=== PATIENT | male | born 1990 ===

== ENCOUNTER 2019-03-04 22:27 | Emergency (ER) | payer OTHER ==
[2019-03-04 22:42] VITALS: RESP 18; O2SAT 99
[2019-03-04 23:44] LABS: BASO # 0.1 K/uL (0.0-0.2); EOS # 0.2 K/uL (0.0-0.7); EOS % 1.6 % (0.0-4.0); HEMOGLOBIN 11.6 g/dL (12.0-18.0); LYMPH # 2.7 K/uL (1.0-4.3); LYMPH % 28.2 % (20.0-40.0); MEAN CELL VOLUME 74.7 fl (80.0-94.0); MEAN CORPUSCULAR HEMOGLOBIN 24.4 pg (27.0-31.0); MEAN CORPUSCULAR HGB CONC 32.7 g/dL (33.0-37.0); MEAN PLATELET VOLUME 7.9 fl (7.2-11.7); MONO # 0.6 K/uL (0.0-0.8); MONO % 6.6 % (0.0-10.0); NEUT % 62.6 % (50.0-75.0); NRBC % 0.1 % (0.0-0.0); RBC 4.77 Mil/uL (4.40-5.90); WHITE BLOOD COUNT 9.5 K/uL (4.8-10.8)
[2019-03-04 23:54] LABS: ALB/GLOB RATIO 1.3 (1.0-2.1); ALBUMIN 4.3 g/dL (3.5-5.0); ALT/SGPT 38 U/L (21-72); AST/SGOT 30 U/L (17-59); BLOOD UREA NITROGEN 10 mg/dl (9-20); CALCIUM 9.1 mg/dL (8.4-10.2); GFR NON-AFRICAN AMERICAN > 60
--- NOTE | 2019-03-05 00:23 | ED PDOC ---
HPI: Chest Pain Time Seen by Provider: 03/04/19 22:30 Chief Complaint (Nursing): Chest Pain Chief Complaint (Provider): Ches pain History Per: Patient History/Exam Limitations: no limitations Onset/Duration Of Symptoms: Days (1) Current Symptoms Are (Timing): Constant Additional Complaint(s): 28 year old male presents to the ED for an evaluation of constant chest pain radiating to his left neck and left shoulder onset yesterday at 1800 when resting at home. Patient took Aspirin for relief and the symptoms returned today prompting a visit to the ED. He too Aspirin prior to arrival. Also reports of shortness of breath prior to arrival that resolved spontaneously. Otherwise, patient denies fever, cough, abdominal pain, nausea, vomiting or diarrhea. PDM: Non CPH Provider Past Medical History Reviewed: Historical Data, Nursing Documentation, Vital Signs Vital Signs: Last Vital Signs Temp 97.9 F 03/04/19 22:39 Pulse 73 03/04/19 22:39 Resp 18 03/04/19 22:39 BP 132/89 03/04/19 22:39 Pulse Ox 99 03/04/19 22:39 Primary Care Provider: Procedure,Nonphys - Medical History PMH: No Chronic Diseases - Surgical History Surgical History: No Surg Hx - Family History Family History: States: No Known Family Hx - Social History Current smoker - smoking cessation education provided: No Alcohol: None Drugs: Denies - Allergies Allergies/Adverse Reactions: Allergies Allergy/AdvReac Type Severity Reaction Status Date / Time FISH Allergy FEVER Verified 03/04/19 22:43 Sulfa (Sulfonamide Allergy ANGIOEDEMA Verified 03/04/19 22:43 Antibiotics) poppyseed oil AdvReac NAUSEA Verified 03/04/19 22:43 SILKE Risk Score for UA/NSTEMI - SILKE Risk Score Age > 64: NO 3 or more CAD Risk Factors: NO Known CAD (Stenosis greater than 50%): NO Aspirin use in past 7 days: NO Severe Angina: NO EKG ST changes greater than 0.5mm: NO Positive Cardiac Marker: NO SILKE Score: 0 Risk %: 5% Curb-65 Severity Score - CURB-65 Severity Score Confusion: No Bun >19mg/dl (>7mmol/L): No Respiratory Rate greater than/equal to 30: No Systolic BP <90 or Diastolic BP less than/equal 60mmHg: No Age >64: No Curb-65 Score: 0 Percentage 30-day mortality: 0.6% Wells Criteria for PE - Wells Criteria for Pulmonary Embolism Clinical Signs and Symptoms of DVT: No P.E is #1 Diagnosis, or Equally Likely: No Heart Rate >100: No Immobilization at least 3 days;Surgery previous 4 weeks: No Previous, objectively diagnosed PE or DVT: No Hemoptysis: No Malignancy w/treatment within 6 months, or palliative: No Total Score: 0 Review of Systems ROS Statement: Except As Marked, All Systems Reviewed And Found Negative Constitutional: Negative for: Fever ENT: Negative for: Nose Congestion Cardiovascular: Positive for: Chest Pain Respiratory: Positive for: Shortness of Breath. Negative for: Cough Musculoskeletal: Positive for: Neck Pain (left), Shoulder Pain (left) Physical Exam - Reviewed Nursing Documentation Reviewed: Yes Vital Signs Reviewed: Yes - Physical Exam Appears: Positive for: Non-toxic, No Acute Distress Head Exam: Positive for: ATRAUMATIC, NORMAL INSPECTION, NORMOCEPHALIC Skin: Positive for: Normal Color, Warm, Dry. Negative for: Rash Eye Exam: Positive for: EOMI, Normal appearance, PERRL ENT: Positive for: Normal ENT Inspection Neck: Positive for: Normal, Painless ROM, Supple. Negative for: Decreased ROM Cardiovascular/Chest: Positive for: Regular Rate, Rhythm. Negative for: Murmur Respiratory: Positive for: Normal Breath Sounds. Negative for: Respiratory Distress Pulses-Dorsalis Pedis (L): 2+ Pulses-Dorsalis Pedis (R): 2+ Gastrointestinal/Abdominal: Positive for: Normal Exam, Bowel Sounds, Soft. Negative for: Tenderness, Distended, Guarding, Rebound Back: Positive for: Normal Inspection. Negative for: L CVA Tenderness, R CVA Tenderness Extremity: Positive for: Normal ROM. Negative for: Tenderness, Pedal Edema, Deformity Neurological/Psych: Positive for: Awake, Alert, Normal Tone, Oriented (x3) - Laboratory Results Result Diagrams: 03/04/19 23:36 03/04/19 23:36 Lab Results: Troponin I < 0.0120 ng/mL (0.00-0.120) 03/04/19 23:36 Total Bilirubin 0.4 mg/dl (0.2-1.3) 03/04/19 23:36 AST 30 U/L (17-59) 03/04/19 23:36 ALT 38 U/L (21-72) 03/04/19 23:36 Alkaline Phosphatase 77 U/L (38-126) 03/04/19 23:36 Total Protein 7.8 G/DL (6.3-8.2) 03/04/19 23:36 Albumin 4.3 g/dL (3.5-5.0) 03/04/19 23:36 Globulin 3.4 gm/dL (2.2-3.9) 03/04/19 23:36 Albumin/Globulin Ratio 1.3 (1.0-2.1) 03/04/19 23:36 - ECG ECG Rhythm: Positive for: Sinus Rhythm Rate: 69 O2 Sat by Pulse Oximetry: 99 (RA) Pulse Ox Interpretation: Normal Medical Decision Making Medical Decision Making: Time: 23:33 Impression: chest pain with back rule out dissection versus cardiac etiology versus muscular Plan: --Angiography dissection protocol CT --EKG --CMP --Troponin --CBC w/ differential EKG: normal sinus rhythm with 69bpm 02:10 CTA OF THE CHEST WITH IV CONTRAST CLINICAL HISTORY: Chest pain. Neck pain. TECHNIQUE: Axial and reformatted sagittal and coronal images of the chest obtained after bolus IV contrast administration. FINDINGS: Normal enhancement of the main pulmonary artery and right and left pulmonary arteries. Normal enhancement of the bilateral peripheral pulmonary arteries. There is no demonstrated pulmonary embolism. Normal thoracic aorta and visualized great vessels. There is no demonstrated aortic dissection. Normal heart and pericardium. Normal mediastinum. Normal hilar regions. Normal visualized trachea and bronchi. The lungs are well expanded. Normal pulmonary parenchyma. Normal pleura. Normal chest wall structures. Normal osseous structures. Normal visualized upper abdomen. IMPRESSION: No demonstrated pulmonary embolism or arterial dissection. CT ANGIOGRAPHY OF THE ABDOMEN AND PELVIS WITH CONTRAST. CLINICAL HISTORY: Chest pain, neck pain. TECHNIQUE: Multiple axial and coronal CT images were obtained through the abdomen and pelvis after administration of intravenous contrast material. COMMENTS: The liver is of uniform attenuation without mass or defect. There is no intra or extrahepatic biliary ductal dilatation. The spleen is normal. The gallbladder is within normal limits. The pancreas is of normal contour and attenuation characteristics. There is no evidence of adrenal mass. Both kidneys demonstrate prompt and equal nephrograms. The kidneys are normal in size, shape and configuration. There is no evidence of renal or ureteral mass. No renal or ureteral calculi are identified. There is no hydroureter or hydronephrosis. Uncomplicated colonic diverticulosis. No evidence for appendicitis. There is no bowel wall thickening. No evidence for small or large bowel obstruction. There is no evidence of abdominal ascites or lymphadenopathy. There is no evidence of intrinsic or extrinsic bladder mass. There is no pelvic ascites or lymphadenopathy. Images of the lung bases show no evidence of pleural or parenchymal mass. There are no pleural effusions. The bony structures are free of lytic or blastic lesions. IMPRESSION: No evidence of acute abdominal or pelvic pathology. Thank you for your kind referral of this patient. Electronically signed on March 05, 2019 1:57:26 AM EDT by: Hank Lomas M.D., Certified by [facility], Neuroradiology 02:39 Patient's sugar level is elevated His troponin result was negative After repeat of troponin, patient will be discharged 03:15 Patient made aware of elevated sugar level Repeat troponin is negative pt feels improved now and stable for dc, stressed the importance of oupt follow up Scribe Attestation: Documented by Benito Corbin, acting as a scribe for Elza Dean MD. Provider Scribe Attestation: All medical record entries made by the Scribe were at my direction and personally dictated by me. I have reviewed the chart and agree that the record accurately reflects my personal performance of the history, physical exam, medical decision making, and the department course for this patient. I have also personally directed, reviewed, and agree with the discharge instructions and disposition. Disposition - Clinical Impression Clinical Impression: Atypical chest pain - Patient ED Disposition Is Patient to be Admitted: No Counseled Patient/Family Regarding: Studies Performed, Diagnosis, Need For Followup - Disposition Referrals: Rodriguez Restrepo MD [Staff Provider] - Disposition: Routine/Home Disposition Time: 02:45 Condition: IMPROVED Additional Instructions: follow up with your primary doctor and senior medical transcriptionist in 1-2 days return to the ED with any worsening or concerning symptoms Instructions: Costochondritis (DC) Forms: [employer] (Irish)
[2019-03-05] MEDS ORDERED: Sodium Chloride 0.9% 50 ML IV ONE (00:25)
[2019-03-05] MEDS ORDERED: Iodixanol 320 MG/ML 100 ML BOTTLE IV ONE (00:25)
[2019-03-05 00:28] VITALS: PULSE 69
[2019-03-05 02:42] VITALS: TEMP 98.2
[2019-03-05 04:50] VITALS: BP 126/69
--- NOTE | 2019-03-05 08:10 | CT ---
PROCEDURE: CT Angiography Chest, Abdomen and Pelvis with and without intravenous contrast HISTORY: Chest pain, neck pain. COMPARISON: None. TECHNIQUE: Contiguous axial images of the chest, abdomen and pelvis were obtained in the phase of aortic enhancement. A noncontrast enhanced CT of the chest was also obtained to evaluate for possible intramural thrombus. Coronal and sagittal reformats were generated. IV dose administered: 95 cc Visipaque 320. Radiation dose: Total exam DLP = 1216.49 mGy-cm. This CT exam was performed using one or more of the following dose reduction techniques: Automated exposure control, adjustment of the mA and/or kV according to patient size, and/or use of iterative reconstruction technique. FINDINGS: CT ANGIOGRAPHY OF THE CHEST WITH & WITHOUT CONTRAST: AORTA (CHEST AND ABDOMEN): The thoracic and abdominal aorta are unremarkable, without aneurysm, dissection or rupture. No intramural thrombus identified in the thoracic aorta on the non-contrast ct of the chest. The celiac axis, superior mesenteric artery, inferior mesenteric artery and the renal arteries are widely patent. The pelvic arteries are unremarkable. LUNGS: Clear. No nodule, mass or consolidation. MEDIASTINUM: Unremarkable. Normal caliber aorta and pulmonary arterial trunk. No aortic dissection. Normal size heart. LYMPH NODES: Unremarkable. PLEURA: Unremarkable. No pneumothorax. No pleural fluid. BONES: Unremarkable. OTHER FINDINGS: None. CT ANGIOGRAPHY OF THE ABDOMEN AND PELVIS WITH CONTRAST: LIVER: Hepatic steatosis. No focal masses. No intrahepatic bile duct dilatation or perihepatic ascites. GALLBLADDER AND BILE DUCTS: Unremarkable. PANCREAS: Unremarkable. No gross lesion or ductal dilatation. SPLEEN: Unremarkable. Incidental finding(s): Small accessory spleen. ADRENALS: Unremarkable. No mass. KIDNEYS AND URETERS: Unremarkable. No hydronephrosis. No solid mass. VASCULATURE: Unremarkable. No aortic aneurysm. No aortic atherosclerotic calcification or mural plaque present. STOMACH AND BOWEL: Unremarkable. No obstruction. No gross mural thickening. APPENDIX: A normal appendix is visualized in it's entirety. PERITONEUM: Unremarkable. No free fluid. No free air. LYMPH NODES: Unremarkable. No enlarged lymph nodes. BLADDER: Unremarkable. REPRODUCTIVE: Unremarkable. BONES: No acute fracture. OTHER FINDINGS: None. IMPRESSION: No significant or acute findings to account for/ related to the clinical presentation. Additional benign and/or incidental findings described above. Concordant results (preliminary interpretation) provided by MARVIN HO. Procedure Completed: 00:39. Preliminary Report: Interpreted and electronically signed: 01:57. Final Interpretation: 08:06.
--- NOTE | 2019-03-05 11:53 | CARD ---
APPROVED REPORT Date of service: 03/04/2019 EKG Measurement Heart [id number] <Conclusion> Normal sinus rhythm Normal ECG
== END 2019-03-05 04:05 | disposition home or self-care (01) ==
LOC: H.ER 22:27
DX: R07.89 Other chest pain (principal); Z88.2 Allergy status to sulfonamides
CPT/HCPCS: 71275; 74175; 80053; 84484; 85025; 93005; 99284; Q9967